=== PATIENT | female | born 2000 | race Hispanic/Latino ===

== ENCOUNTER 2018-01-05 22:16 | Emergency (ER) | payer SELFPAY ==
[~2018-01-05] VITALS: Ht 162.6 cm; Wt 56.2 kg
[2018-01-05] MEDS ORDERED: FLUDROCORTISON0.1 MG PO (23:25)
[2018-01-05] MEDS ORDERED: CORTEF10 MG PO (23:25)
[2018-01-05] MEDS ORDERED: LISINOPRIL10 MG PO (23:25)
[2018-01-05] MEDS ORDERED: SYNTHROID75 MCG PO (23:25)
[2018-01-05] MEDS ORDERED: FERROUS SULFAT325 M1 PO (23:25)
[2018-01-05] MEDS ORDERED: SODIUM CHLORIDE 0.9% 1000ML 1,000 ML IV SCH ×2 (23:30)
[2018-01-05 23:35] LABS: BASOPHILS % 0.1 % (0.0-1.0); EOSINOPHILS # (AUTO) 0.2 (0.0-0.4); EOSINOPHILS % 1.7 % (0.0-6.0); HEMATOCRIT 39.2 % (34.2-44.1); LYMPHOCYTES # (AUTO) 1.9 (1.0-3.2); LYMPHOCYTES % 21.4 % (18.0-39.1); MEAN CORPUSCULAR HEMOGLOBIN 31.1 pg (28-32); MEAN CORPUSCULAR HGB CONC 35.7 g/dL (31-35); MEAN CORPUSCULAR VOLUME 87.1 fL (81-99); MONOCYTES # (AUTO) 0.3 (0.2-0.8); MONOCYTES % 3.1 % (4.4-11.3); NEUTROPHILS # (AUTO) 6.6 (2.1-6.9); NEUTROPHILS % 73.5 % (38.7-80.0); PLATELET COUNT 263 x10e3/uL (140-360); RED CELL DISTRIBUTION WIDTH 11.9 % (11.7-14.4)
[2018-01-05 23:51] LABS: ALBUMIN 3.7 g/dL (3.5-5.0); ALBUMIN/GLOBULIN RATIO 1.1 (0.8-2.0); ANION GAP 15.8 mmol/L (8-16); CALCIUM 8.9 mg/dL (8.4-10.2); CREATININE, SERUM 1.38 mg/dL (0.57-1.11); MAGNESIUM 1.8 MG/DL (1.3-2.1); POTASSIUM 5.8 mmol/L (3.5-5.1)
[2018-01-06 00:05] LABS: PREGNANCY TEST, URINE NEGATIVE (NEGATIVE)
[2018-01-06 00:07] LABS: CLARITY,URINE CLEAR (CLEAR); COLOR,URINE YELLOW (YELLOW)
[2018-01-06 00:08] LABS: BILIRUBIN,URINE NEGATIVE (NEGATIVE); KETONES,URINE 1+ (NEGATIVE); LEUKOCYTE ESTERASE ,URINE NEGATIVE (NEGATIVE); NITRITE,URINE NEGATIVE (NEGATIVE); PROTEIN,URINE DIPSTICK NEGATIVE (NEGATIVE); URINE UROBILINOGEN 0.2 mg/dL (0.2 - 1)
[2018-01-06 00:19] LABS: EPITHELIAL CELLS,URINE RARE /LPF; TRICHOMONAS,URINE FEW
[2018-01-06] MEDS ORDERED: CEFTRIAXONE SOD 1 GM VIAL IV STA (00:26)
[2018-01-06] MEDS ORDERED: CEFTRIAXONE SOD 1 GM VIAL ONE (00:29)
[2018-01-06] MEDS ORDERED: INSULIN REGULAR, HUMAN 100 UNIT/1 ML 3ML VIAL IV ONE (00:30)
--- NOTE | 2018-01-06 01:03 | Diagnostic Imaging Report ---
EXAM: CHEST 2 VIEWS, PA and lateral INDICATION: Abdominal pain COMPARISON: None FINDINGS: LINES/TUBES: None LUNGS: No consolidations or edema. PLEURA: No effusions or pneumothorax. HEART AND MEDIASTINUM: Normal size and contour. BONES AND SOFT TISSUES: No acute findings. IMPRESSION: No acute thoracic abnormality. Signed by: Dr. Suellen Fitzgerald M.D. on 01/06/2018 12:59 AM
== END 2018-01-06 01:52 | disposition home or self-care (01) ==
LOC: ER 22:16
DX: R11.2 Nausea with vomiting, unspecified (principal); E86.0 Dehydration; E10.65 Type 1 diabetes mellitus with hyperglycemia; Z79.4 Long term (current) use of insulin; A59.9 Trichomoniasis, unspecified
CPT/HCPCS: 36415; 71046; 80053; 81001; 81025; 82150; 82948; 83690; 83735; 85025; 96374; 99284; J0696; J7030 ×2

== ENCOUNTER 2018-07-16 18:48 | Emergency (ER) | payer SELFPAY ==
[~2018-07-16] VITALS: Ht 162.6 cm; Wt 56.2 kg
[~2018-07-16 18:48] MED LIST: CORTEF10 MG PO; FERROUS SULFAT325 M1 PO; FLUDROCORTISON0.1 MG PO; LISINOPRIL10 MG PO; SYNTHROID75 MCG PO
--- OUTSIDE RECORDS SUMMARY | 2018-07-16 18:51 | XMS REPORT ---
Author Author [facility] Address Unknown Phone Unavailable Care Team Providers Care Proof Technician Name Role Phone Smith PERRY Unavailable Unavailable Problems This patient has no known problems. Allergies, Adverse Reactions, Alerts This patient has no known allergies or adverse reactions. Medications This patient has no known medications. Encounters Start Date/Time End Date/Time Encounter Type Admission Type Attending [facility] Care Facility Care Department Encounter ID 2018-06-24 00:00:00 2018-06-24 00:00:[address] [facility] [id number] 2018-06-24 00:00:00 2018-06-24 00:00:[address] [facility] [id number] 2018-05-21 00:00:00 2018-05-21 00:00:[address] [facility] [id number] 2018-05-21 00:00:00 2018-05-21 00:00:[address] [facility] [id number] 2018-05-21 00:00:00 2018-05-21 00:00:[address] [facility] [id number] 2018-05-18 00:00:00 2018-05-18 00:00:[address] [facility] [id number] 2018-05-13 15:28:53 2018-05-13 15:28:[address] [facility] [id number] 2018-05-13 14:19:29 2018-05-13 14:19:[address] [facility] [id number] Results Test Description Test Time Test Comments Text Results Atomic Results Result Comments CHEST 2 VIEWS 2018-01-06 00:58:00 [place] [address] Patient Name: ELIAN SORENSON MR #: [id number] : 2000 Age/Sex: 17/F Req #: [id number] Adm Physician: Ordered by: ABILIO PERRY MD Report #: [id number] Location: ER Room/Bed: Procedure: [id number] DX/CHEST 2 VIEWS Exam Date: 01/06/18 Exam Time: 2358 REPORT STATUS: Signed EXAM: CHEST 2 VIEWS, PA and lateral INDICATION: Abdominal pain COMPARISON: None FINDINGS: LINES/TUBES: None LUNGS: No consolidations or edema. PLEURA: No effusions or pneumothorax. HEART AND MEDIASTINUM: Normal size and contour. BONES AND SOFT TISSUES: No acute findings. IMPRESSION: No acute thoracic abnormality. Signed by: Dr. Aurelia Underwood M.D. on 01/06/2018 12:59 AM Dictated By: AURELIA UNDERWOOD MD Transcribed By: TRAVON on 01/06/1858 COPY TO: ABILIO PERRY MD
--- OUTSIDE RECORDS SUMMARY | 2018-07-16 18:51 | XMS REPORT | Clinical Summary ---
Author Author [facility] Organization [facility] Address Unknown Phone Unavailable Care Team Providers Care Lithographic Photographer Apprentice Name Role Phone Gregoria Rodrigez MD PCP Allergies No Known Allergies Medications End Date Status Medication Sig Dispensed Refills Start Date Active lisinopril (PRINIVIL) 5 Take 1 tablet 90 tablet 1 201 mg tabletIndications: by mouth 8 Type 1 diabetes mellitus daily. with microalbuminuria Active hydrocortisone (CORTEF) 5 Take 3 450 tablet 1 mg tabletIndications: tablets by 8 Primary adrenal mouth in the insufficiency morning and 2 tablets in early afternoon. Take triple the dose when ill Active levothyroxine (SYNTHROID) Take 1 tablet 90 tablet 1 88 mcg tabletIndications: by mouth 8 Aiden's thyroiditis every morning (before breakfast). Active fludrocortisone Take 1 tablet 90 tablet 1 (FLORINEF) 0.1 mg by mouth 8 tabletIndications: daily. Primary adrenal insufficiency Active insulin aspart U-100 Inject 15 39 mL 1 (NOVOLOG FLEXPEN U-100 Units under 8 INSULIN) 100 unit/mL the skin 3 penIndications: Type 1 times daily diabetes mellitus with with meals. microalbuminuria Active blood glucose meter Use as 1 Kit 0 (PRECISION XTRA directed.. 8 GLUCOMETER)Indications: Type 1 diabetes mellitus with microalbuminuria Active blood glucose (PRECISION Use 2 times 50 Each 3 XTRA TEST STRIPS) test weekly (once 8 stripsIndications: Type 1 per day on diabetes mellitus with Mon,Thurs) to microalbuminuria test blood sugar. Active lancets 28 Use 2 times 100 Each 1 gaugeIndications: Type 1 weekly as 8 diabetes mellitus with directed. microalbuminuria Active insulin detemir U-100 Inject 42 39 mL 1 (LEVEMIR FLEXTOUCH) 100 Units under 8 unit/mL (3 mL) the skin PenIndications: Type 1 every diabetes mellitus with evening. microalbuminuria Active pen needle, diabetic 31 Inject under 1 Box 11 gauge x 3/16" the skin 4 8 needlesIndications: Type times daily. 1 diabetes mellitus with microalbuminuria 05/13/2018 tropicamide (MYDRIACYL) Instill 1 15 mL 0 0.5 % ophthalmic Drop in each 8 solutionIndications: Type eye once as 1 diabetes mellitus with needed for up microalbuminuria to 1 dose (for poor retina scan image). Active Problems No known active problems Encounters Care Team Description Date Type Specialty Gregoria Rodrigez MD Other (Reschedule Retinal Scan appointment) 05/21/2018 Telephone Ophthalmology Gregoria Rodrigez MD Type 1 diabetes mellitus with microalbuminuria (Primary Dx); Need for vaccination; Primary adrenal insufficiency; Aiden's thyroiditis; Preventative health care 05/13/2018 Office Visit Family Practice after 07/15/2017 Immunizations Name Dates Previously Given Next Due Influenza, 05/13/2018 Vaccine<FLUCELVAX>(Multi- Dose) TDap (Tetanus Toxoid, 05/13/2018 Reduced Diphtheria Toxoid And Acellular Pertussis, Absorbed) Family History Medical History Relation Name Comments Diabetes Father Arthritis Mother Hypothyroid Mother Diabetes Paternal Grandfather Relation Name Status Comments Father Mother Paternal Grandfather Social History Date Tobacco Use Types Packs/Day Years Used Never Smoker Smokeless Tobacco: Never Used Alcohol Use Drinks/Week oz/Week Comments No Sex Assigned at Date Recorded Not on file Industry Job Start Date Occupation Not on file Not on file Not on file Travel End Travel History Travel Start No recent travel history available. Last Filed Vital Signs Time Taken Vital Sign Reading 05/13/2018 2:19 PM CDT Blood Pressure 85/47 05/13/2018 2:19 PM CDT Pulse 73 05/13/2018 2:19 PM CDT Temperature 36.5 C (97.7 F) 05/13/2018 2:19 PM CDT Respiratory Rate 20 - Oxygen Saturation - - Inhaled Oxygen - Concentration 05/13/2018 2:19 PM CDT Weight 57 kg (125 lb 9.6 oz) 05/13/2018 2:19 PM CDT Height 162.6 cm (5' 4") 05/13/2018 2:19 PM CDT Body Mass Index 21.56 Plan of Treatment Health Maintenance Due Date Last Done Comments DM Retinal Exam (Yearly) 2016 DM Foot Exam (Yearly) 05/13/2019 05/13/2018 DM HGBA1C (Yearly) 05/13/2019 05/13/2018 IMM Influenza Seasonal Completed 05/13/2018 Oct to September (>/=19 yrs) Procedures Comments Procedure Name Priority Date/Time Associated Diagnosis MICROALBUM, URINE Routine 05/13/2018 Type 1 diabetes mellitus 3:24 PM CDT with microalbuminuria ACTH, PLASMA Routine 05/13/2018 Primary adrenal 3:23 PM CDT insufficiency VIT D, 25-HYDROXY Routine 05/13/2018 Preventative health care 3:23 PM CDT HEPATITIS PANEL Routine 05/13/2018 Primary adrenal 3:23 PM CDT insufficiency HIV-1/HIV-2 ROUTINE Routine 05/13/2018 Primary adrenal SCREENING 3:23 PM CDT insufficiency FREE T4 Routine 05/13/2018 Aiden's thyroiditis 3:23 PM CDT TSH Routine 05/13/2018 Aiden's thyroiditis 3:23 PM CDT HEMOGLOBIN A1C Routine 05/13/2018 Type 1 diabetes mellitus 3:23 PM CDT with microalbuminuria CBC/DIFF Routine 05/13/2018 Type 1 diabetes mellitus 3:23 PM CDT with microalbuminuria COMPREHENSIVE METABOLIC Routine 05/13/2018 Type 1 diabetes mellitus PANEL(DBIL NOT INCLUDED) 3:23 PM CDT with microalbuminuria DIABETIC FOOT EXAM Routine 05/13/2018 Type 1 diabetes mellitus 3:03 PM CDT with microalbuminuria after 07/15/2017 Results * MICROALBUM, URINE (05/13/2018 3:24 PM CDT) Microalbum, <0.7 0.0 - 29.0 mg/dL BT MAIN-STATION Random 1 Creatinine, Ur 29.2 20 - 320 mg/dL BT MAIN[facility]STATION 1 Urine Unable to calculate, 0 - 29 mg/g UCR BT [facility]ATION Microalbumin parameters incomplete 4 Comment: To minimize intra-individual variation, analysis of three random urine samples collected over the course of a week is recommended. Performing Organization Address [facility] Phone Number [facility] 1 BT MAIN[facility] 4 * VIT D, 25-HYDROXY (05/13/2018 3:23 PM CDT) Vit D, 14.9 (L) 30 - 100 ng/mL BT DIAGNOSTIC 25-Hydroxy Comment: IMMUNOLOGY Vitamin D deficiency has been defined by the [place] of Medicine and Endocrine Society guideline as a level of serum 25-OH Vitamin D less than 20 ng/mL. The Endocrine Society further defines Vitamin D insufficiency as a level between 21 and 29 ng/mL and sufficiency as a level between 30 and 100 ng/mL. Performing Organization Address [facility] Phone Number [facility] BT DIAGNOSTIC IMMUNOLOGY * HIV-1/HIV-2 ROUTINE SCREENING (05/13/2018 3:23 PM CDT) HIV-1/HIV-2 Negative NEG BT MAIN-STATION 3 Performing Organization Address [facility] Phone Number [facility] 3 * ACTH, PLASMA (05/13/2018 3:23 PM CDT) ACTH, Plasma 894.2 LABORATORY Reference range: 7.2 to 63.3 [employer] OF Unit: pg/mL TERRELL (note) ACTH reference interval for samples collected between 7 and 10 AM. (H) Specimen Blood Performing Organization Address [facility] Phone Number [facility] OF [address] [facility] [place] [address] [address] * HEMOGLOBIN A1C (05/13/2018 3:23 PM CDT) Hemoglobin A1c 14.7 (H) 4.3 - 6.1 % BT DIAGNOSTIC IMMUNOLOGY Est Average 375.2 mg/dL BT DIAGNOSTIC Gluc IMMUNOLOGY Specimen Blood Performing Organization Address [facility] Phone Number [facility] * COMPREHENSIVE METABOLIC PANEL(DBIL NOT INCLUDED) (05/13/2018 3:23 PM CDT) Albumin 3.9 3.7 - 5.3 g/dL BT [facility]IN[facility]ATION 1 Calcium 10.1 8.6 - 10.3 mg/dL BT MAIN[facility]ATION 1 CO2 27 21 - 31 mmol/L BT MAIN[facility]STATION 1 Chloride 98 98 - 107 mmol/L BT MAIN[facility]ATION 1 Creatinine 0.90 0.6 - 1.2 mg/dL BT MAIN[facility]STATION 1 Glucose 335 (H) 70 - 110 mg/dL BT MAIN[facility]ATION 1 Alk Phos 74 34 - 104 U/L BT MAIN-STATION 1 Potassium 4.9 3.5 - 5.1 mmol/L BT MAIN[facility]STATION 1 Sodium 133 (L) 136 - 145 mmol/L BT MAIN-STATION 1 ALT 24 7 - 52 U/L BT MAIN[facility]STATION 1 AST 30 13 - 39 U/L BT MAIN-STATION 1 Urea Nitrogen 24 7 - 25 mg/dL BT MAIN[facility]ATION 1 T Bilirubin 0.7 0.2 - 1.2 mg/dL BT MAIN[facility]ATION 1 T Protein 6.3 6.0 - 8.3 g/dL BT [facility] 1 GFR, Estimated >60 mL/min/1.73 m2 BT MAIN-STATION 1 GFR, Estim, >60 mL/min/1.73 m2 BT MA[facility] Afr-Am 1 Anion Gap 8 BT MAIN-STATION 1 Specimen Blood Performing Organization Address [facility] Phone Number [facility] BT [facility]IN[facility]STATION 1 * TSH (05/13/2018 3:23 PM CDT) TSH 31.02 (H) 0.57 - 3.74 uIU/mL BT MAIN-STATION 1 Specimen Blood Performing Organization Address [facility] Phone Number [facility] BT [facility] 1 * FREE T4 (05/13/2018 3:23 PM CDT) Free T4 0.57 (L) 0.61 - 1.18 ng/dl BT [facility] Comment: 1 females: 1st Trimester-0.52-1.10 ng/dL 2nd Trimester=0.45-0.99 ng/dL 3rd Trimester=0.48-0.95 ng/dL Specimen Blood Performing Organization Address [facility] Phone Number [facility] BT [facility] 1 * HEPATITIS PANEL (05/13/2018 3:23 PM CDT) HCV IgG Negative NEG BT MAIN-STATION 3 HBsAg Negative NEG BT MAIN-STATION 3 HAV, IgM Negative NEG BT MAIN-STATION 3 HBcAb, IgM Negative NEG BT MAIN-STATION 3 Specimen Blood Performing Organization Address City/State/Zipcode Phone Number [facility] BT [facility] 3 * CBC/DIFF (05/13/2018 3:23 PM CDT) WBC 5.7 4.5 - 11.0 K/uL BT MAIN[facility]STATION 2 RBC 4.12 (L) 4.20 - 5.40 M/uL BT MAIN[facility]STATION 2 Hemoglobin 12.3 12.0 - 16.0 g/dL BT MA[facility] 2 Hematocrit 35.6 (L) 37.0 - 47.0 % BT MAIN[facility] 2 MCV 86 82 - 92 fL BT MAIN[facility]ATION 2 MCH 29.9 27.0 - 32.0 pg BT MAIN-STATION 2 MCHC 34.6 32.0 - 36.0 g/dL BT MA[facility] 2 RDW 39.0 36.4 - 46.3 fL BT [facility]ATION 2 Platelet 254 150 - 400 K/uL BT MAIN[facility]STATION 2 Mean Platelet 12.4 9.4 - 12.4 fL BT [facility] Volume 2 Percent NRBC 0.0 BT MAIN[facility]STATION 2 Absolute NRBC 0.00 BT MAIN[facility]STATION 2 Neutrophil 36.5 34.0 - 70.0 % BT MAIN[facility]ATION 2 Lymphocyte 49.3 20.0 - 50.0 % BT [facility] 2 Monocyte 5.7 5.0 - 12.0 % BT MAIN[facility] 2 Eosinophil 7.8 (H) 0.7 - 5.0 % BT [facility]ATION 2 Basophil 0.5 0.1 - 1.2 % BT [facility]IN[facility] 2 Pct Immat Gran 0.2 0.0 - 0.5 BT MAIN-STATION 2 Neutrophil, Abs 2.07 1.56 - 6.13 K/uL BT MAIN[facility]STATION 2 Lymphocyte, Abs 2.79 1.18 - 3.74 K/uL BT MAIN-STATION 2 Monocyte, Abs 0.32 0.24 - 0.36 K/uL BT MAIN-STATION 2 Eosinophil, Abs 0.44 (H) 0.04 - 0.36 K/uL BT MAIN-STATION 2 Basophil, Abs 0.03 0.01 - 0.08 K/uL BT MAIN-STATION 2 Absol Immat 0.01 0.00 - 0.03 K/uL BT MAIN[facility]ATION Gran 2 Specimen Blood Performing Organization Address City/State/Zipcode Phone Number [facility] 2 * DIABETIC FOOT EXAM (05/13/2018 3:03 PM CDT) Narrative Performed At Gregoria Rodrigez MD 05/13/20183:52 PM Diabetic Foot Exam was performed at 05/13/2018 3:52 PM.Right foot sensation is normal, right foot pulses are normal, right foot appearance is normal.Left foot sensation is normal,left foot pulses are normal, left foot appearance is normal. after 07/15/2017 Insurance Type Payer Benefit Subscriber ID Effective Phone Address Plan / Dates Group [facility] xxxxx 2018-8 [address] [employer] / [id number] [place], [place] [address] TITLE V PROGRAM TITLE V - xxxxxxxxx 2018- [phone] [address] [facility] [place] [address] [employer] PLAN H[employer] PLAN xxxxxxxxx 2018-[id number] [place] [address] [place] [address]
--- NOTE | 2018-07-16 22:00 | Diagnostic Imaging Report ---
CHEST 2 VIEWS, Technique: CHEST 2 VIEWS Comparison: None Clinical history: Cough DISCUSSION: Bilateral peribronchial cuffing/opacity. Otherwise normal appearance of the heart, mediastinum, and pleural spaces. IMPRESSION: Findings which can be seen with small airways disease/atypical/viral infection. Signed by: Dr Lilli Cheatham MD on 07/16/2018 9:57 PM
== END 2018-07-16 23:00 | disposition home or self-care (01) ==
LOC: ER 18:48
DX: R50.9 Fever, unspecified (principal); R05 Cough; J02.0 Streptococcal pharyngitis
CPT/HCPCS: 71046; 83518; 87070

== ENCOUNTER 2018-11-12 20:34 | Inpatient (IN) | payer SELFPAY ==
[~2018-11-12] VITALS: Ht 162.6 cm; Wt 60.8 kg
--- OUTSIDE RECORDS SUMMARY | 2018-11-12 20:37 | XMS REPORT | Clinical Summary ---
Author Author [facility] Organization [facility] Address Unknown Phone Unavailable Care Team Providers Care Project Management Instructor Name Role Phone Gregoria Rodrigez MD PCP Allergies No Known Allergies Medications End Date Status Medication Sig Dispensed Refills Start Date Active hydrocortisone (CORTEF) 5 Take 3 450 tablet 1 mg tabletIndications: tablets by 8 Primary adrenal mouth in the insufficiency morning and 2 tablets in early afternoon. Take triple the dose when ill Active fludrocortisone Take 1 tablet 90 tablet 1 (FLORINEF) 0.1 mg by mouth 8 tabletIndications: daily. Primary adrenal insufficiency Active blood glucose meter Use as 1 Kit 0 (PRECISION XTRA directed.. 8 GLUCOMETER)Indications: Type 1 diabetes mellitus with microalbuminuria Active pen needle, diabetic 31 Inject under 1 Box 11 gauge x 3/16" the skin 4 8 needlesIndications: Type times daily. 1 diabetes mellitus with microalbuminuria Active blood glucose (PRECISION Use 2 times 50 Each 3 XTRA TEST STRIPS) test weekly (once 9 stripsIndications: Type 1 per day on diabetes mellitus with Mon,) to microalbuminuria test blood sugar. Active lancets 28 Use 2 times 100 Each 1 gaugeIndications: Type 1 weekly as 9 diabetes mellitus with directed. microalbuminuria Active lisinopril (PRINIVIL) 5 Take 1 tablet 90 tablet 1 mg tabletIndications: by mouth 9 Type 1 diabetes mellitus daily. with microalbuminuria Active levothyroxine (SYNTHROID) Take 1 tablet 90 tablet 1 88 mcg tabletIndications: by mouth 9 Aiden's thyroiditis every morning (before breakfast). Active insulin detemir U-100 Inject 42 39 mL 1 (LEVEMIR FLEXTOUCH) 100 Units under 9 unit/mL (3 mL) the skin PenIndications: Type 1 every diabetes mellitus with evening. microalbuminuria Active insulin aspart U-100 Inject 15 39 mL 0 (NOVOLOG FLEXPEN U-100 Units under 9 INSULIN) 100 unit/mL the skin 3 penIndications: Type 1 times daily diabetes mellitus with with meals. microalbuminuria 08/18/2018 Discontinued lisinopril (PRINIVIL) 5 Take 1 tablet 90 tablet 1 mg tabletIndications: by mouth 8 Type 1 diabetes mellitus daily. with microalbuminuria 08/18/2018 Discontinued levothyroxine (SYNTHROID) Take 1 tablet 90 tablet 1 88 mcg tabletIndications: by mouth 8 Aiden's thyroiditis every morning (before breakfast). 09/07/2018 Discontinued insulin aspart U-100 Inject 15 39 mL 1 (NOVOLOG FLEXPEN U-100 Units under 8 INSULIN) 100 unit/mL the skin 3 penIndications: Type 1 times daily diabetes mellitus with with meals. microalbuminuria 05/13/2018 tropicamide (MYDRIACYL) Instill 1 15 mL 0 0.5 % ophthalmic Drop in each 8 solutionIndications: Type eye once as 1 diabetes mellitus with needed for up microalbuminuria to 1 dose (for poor retina scan image). 08/17/2018 Discontinued blood glucose (PRECISION Use 2 times 50 Each 3 XTRA TEST STRIPS) test weekly (once 8 stripsIndications: Type 1 per day on diabetes mellitus with Thu,) to microalbuminuria test blood sugar. 08/17/2018 Discontinued lancets 28 Use 2 times 100 Each 1 gaugeIndications: Type 1 weekly as 8 diabetes mellitus with directed. microalbuminuria 08/18/2018 Discontinued insulin detemir U-100 Inject 42 39 mL 1 (LEVEMIR FLEXTOUCH) 100 Units under 8 unit/mL (3 mL) the skin PenIndications: Type 1 every diabetes mellitus with evening. microalbuminuria Active Problems No known active problems Encounters Care Team Description Date Type Specialty Shauna Gao, OD Type 1 diabetes mellitus without retinopathy (Primary Dx); Glaucoma suspect of left eye; Blurred vision, left eye; Refractive error 11/02/2018 Office Visit Ophthalmology 11/02/2018 Gregoria Hawkins MD Type 1 diabetes mellitus with microalbuminuria 09/07/2018 Refill Ophthalmology Gregoria Rodrigez MD Type 1 diabetes mellitus with microalbuminuria 08/18/2018 Lab Appointment Lab Gregoria Rodrigez MD Type 1 diabetes mellitus with microalbuminuria 08/18/2018 Ancillary Ophthalmology Procedure 08/18/2018 Gregoria Hawkins MD Type 1 diabetes mellitus with microalbuminuria; Aiden's thyroiditis 08/18/2018 Refill Family Practice Gregoria Rodrigez MD Type 1 diabetes mellitus with microalbuminuria 08/17/2018 Refill Ophthalmology Gregoria Rodrigez MD Other (Reschedule Retinal Scan appointment) 05/21/2018 Telephone Ophthalmology Gregoria Rodrigez MD Type 1 diabetes mellitus with microalbuminuria (Primary Dx); Need for vaccination; Primary adrenal insufficiency; Aiden's thyroiditis; Preventative health care 05/13/2018 Office Visit Family Practice after 11/11/2017 Immunizations Name Dates Previously Given Next Due Influenza, 05/13/2018 Vaccine<FLUCELVAX>(Multi- Dose) Tdap (Tetanus Toxoid, 05/13/2018 Reduced Diphtheria Toxoid And [...] Body Mass Index 21.56 Plan of Treatment Care Team Description Date Type Specialty Gregoria Rodrigez MD [address] [facility] [id number] [place] [address] General check up 11/30/2018 Office Visit Family Practice 12/30/2018 Office Visit Ophthalmology Shauna Gao, OD [address] [place] [address] OCT 01/31/2019 Office Visit Ophthalmology Health Maintenance Due Date Last Done Comments IMM Influenza Seasonal 04/26/2019 05/13/2018Apr to September (>/=19 yrs) DM Foot Exam (Yearly) 05/13/2019 05/13/2018 DM HGBA1C (Yearly) 05/13/2019 05/13/2018 DM Retinal Exam (Yearly) 11/03/2019 11/02/2018, 08/18/2018 Procedures Comments Procedure Name Priority Date/Time Associated Diagnosis OPHTHALMOLOGY RETINAL Routine 08/18/2018 Type 1 diabetes mellitus 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 microalbuminuria LIPID PROFILE Routine 08/18/2018 Type 1 diabetes mellitus 9:46 AM KNITTING MACHINE MECHANIC with microalbuminuria MICROALBUM, URINE Routine 05/13/2018 Type 1 diabetes [...] mellitus 3:03 PM CDT with microalbuminuria after 11/11/2017 Results * OPHTHALMOLOGY RETINAL SCAN (08/18/2018 11:04 AM KNITTING MACHINE MECHANIC) RETINAL NORMAL IRIS SCAN-FINAL RESULT Right Diabetic None IRIS Retinopathy Right Macular None IRIS Edema Right Other None IRIS Suspected Conditions Right Image Gradeable Image IRIS Quality Left Diabetic None IRIS Retinopathy Left Macular None IRIS Edema Left Other Suspected Glaucoma IRIS Suspected Conditions Left Image Gradeable Image IRIS Quality Narrative Performed At Retinal Study Result for ELIAN SORENSON ESMERALDA, a 18 y/o, F (: 2000, ) presented to [facility] on 08-18-2018 for a retinal imaging study of the left and right eyes. Based on the findings of the study, the following is recommended for ELIAN SORENSON Other Suspected Condition Found: Refer to [facility], next available appointment.For Follow-up at [facility]: The patient can be scheduled into any [facility] that has an open booking by calling the appointment center. Interpreting Provider's Comments:No comments provided Right Eye Findings: Normal Result.Negative for Diabetic Retinopathy. Left Eye Findings: Negative for Diabetic Retinopathy. Other: Suspected Glaucoma This result was electronically signed by Nicola Daugherty MD, , Taxonomy: [id number] on 08-18-2018 04:04:29 [facility] time. NOTE:Any pathology noted on this diabetic retinal evaluation should be confirmed by an appropriate ophthalmic examination. Performing Organization Address City/State/Zipcode Phone Number IRIS * LIPID PROFILE (08/18/2018 9:46 AM KNITTING MACHINE MECHANIC) Cholesterol 196 mg/dL BT MAIN-STATION Comment: 1 REFERENCE RANGE: Desirable: <200 mg/dL Borderline: 200-240 mg/dL High Risk: >240 mg/dL Triglyceride 103 <150 mg/dL BT MAIN-STATION Comment: 1 REFERENCE RANGE: Normal: <150 mg/dL Borderline High: 150-199 mg/dL High: 200-499 mg/dL Very High: >ni=340 mg/dL HDL 50 mg/dL BT MAIN-STATION Comment: 1 Increased CHD risk: <40 mg/dL Decreased CHD risk: >60 mg/dL LDL 125 mg/dL BT MAIN-STATION Comment: 1 REFERENCE RANGE: Optimal: <100 mg/dL Near Optimal: 100-129 mg/dL Borderline High: 130-159 mg/dL High: 160-189 mg/dL Very High: >ob=636 mg/dL Specimen Blood Performing Organization Address City/[facility] Vegascode Phone Number [email or web address] BT MAIN-STATION 1 * MICROALBUM, URINE (05/13/2018 3:24 PM CDT) [...] a week is recommended. Performing Organization Address City/[email or web address] Phone Number [employer] BT MAIN-STATION 1 BT MAIN-STATION 4 * VIT D, 25-HYDROXY (05/13/2018 3:23 PM CDT) Vit D, 14.9 (L) 30 - 100 ng/mL BT DIAGNOSTIC 25-Hydroxy Comment: IMMUNOLOGY Vitamin D deficiency has been defined by the [place] and Endocrine Society guideline as a level of serum 25-OH Vitamin D less than 20 ng/mL. The Endocrine Society further defines Vitamin D insufficiency as a level between 21 and 29 ng/mL and sufficiency as a level between 30 and 100 ng/mL. Performing Organization Address City/State/[employer]code Phone Number [email or web address] BT DIAGNOSTIC IMMUNOLOGY * HIV-1/HIV-2 ROUTINE SCREENING (05/13/2018 3:23 PM CDT) HIV-1/HIV-2 Negative NEG BT MAIN-STATION 3 Performing Organization Address City/State/[employer] Phone Number [employer] BT MAIN-STATION 3 * ACTH, PLASMA (05/13/2018 3:23 PM CDT) ACTH, Plasma 894.2 LABORATORY Reference range: 7.2 to 63.3 CORPORATION OF Unit: pg/mL TERRELL (note) ACTH reference interval for samples collected between 7 and 10 AM. (H) Specimen Blood Performing Organization Address [facility] Vegascode Phone Number [employer] TherapeuticsMILLICENT [facility]AT[facility] CORPORATION OF [address], [place] [address] TERRELL 145 * HEMOGLOBIN A1C (05/13/2018 3:23 PM CDT) Hemoglobin A1c 14.7 (H) 4.3 - 6.1 % BT DIAGNOSTIC IMMUNOLOGY Est Average 375.2 mg/dL BT DIAGNOSTIC Gluc IMMUNOLOGY Specimen Blood Performing Organization Address [facility] Phone Number DOMINIQUE DIAGNOSTIC IMMUNOLOGY * COMPREHENSIVE METABOLIC PANEL(DBIL NOT [...] MAIN-STATION 1 Specimen Blood Performing Organization Address [facility] Vegascova Phone Number MISYS BT MAIN-STATION 1 * TSH (05/13/2018 3:23 PM CDT) TSH 31.02 (H) 0.57 - 3.74 uIU/mL BT MAIN-STATION 1 Specimen Blood Performing Organization Address [facility] Phone Number [facility] BT MAIN-STATION 1 * FREE T4 (05/13/2018 3:23 PM CDT) Free T4 0.57 (L) 0.61 - 1.18 ng/dl BT MAIN-STATION Comment: 1 females: 1st Trimester-0.52-1.10 ng/dL 2nd Trimester=0.45-0.99 ng/dL 3rd Trimester=0.48-0.95 ng/dL Specimen Blood Performing Organization Address [facility] Phone Number [facility] BT MAIN-STATION 1 * HEPATITIS PANEL (05/13/2018 3:23 PM CDT) HCV IgG Negative NEG BT MAIN-STATION 3 HBsAg Negative NEG BT MAIN-STATION 3 HAV, IgM Negative NEG BT MAIN-STATION 3 HBcAb, IgM Negative NEG BT MAIN-STATION 3 Specimen Blood Performing Organization Address [facility] Phone Number [facility] BT MAIN-STATION 3 * CBC/DIFF (05/13/2018 3:23 [...] normal, left foot appearance is normal. after 11/11/2017 Insurance Type Payer Benefit Subscriber ID Effective Phone Address Plan / Dates Group [facility] xxxxx 2018- [phone] [address]ILY [id number] [place], [place] [address] TITLE V PROGRAM TITLE V - xxxxxxxxx 2018- [phone] [address] [place] [address] HCHD PLAN HCHD PLAN xxxxx 2018-9 [address] [place] [address]
[2018-11-12] MEDS ORDERED: SODIUM CHLORIDE 0.9% 1000ML 2,000 ML IV STA (20:48)
[2018-11-12 21:13] LABS: BASOPHILS % 0.2 % (0.0-1.0); EOSINOPHILS # (AUTO) 0.1 (0.0-0.4); EOSINOPHILS % 0.9 % (0.0-6.0); HEMOGLOBIN 11.6 g/dL (12.0-16.0); LYMPHOCYTES % 33.2 % (18.0-39.1); MEAN CORPUSCULAR HEMOGLOBIN 30.5 pg (28-32); MEAN CORPUSCULAR HGB CONC 34.1 g/dL (31-35); MEAN CORPUSCULAR VOLUME 89.5 fL (81-99); MONOCYTES # (AUTO) 0.3 (0.2-0.8); MONOCYTES % 4.9 % (4.4-11.3); NEUTROPHILS # (AUTO) 3.6 (2.1-6.9); NEUTROPHILS % 60.6 % (38.7-80.0); PLATELET COUNT 211 x10e3/uL (140-360); RED CELL DISTRIBUTION WIDTH 13.3 % (11.7-14.4)
[2018-11-12] MEDS ORDERED: SODIUM CHLORIDE 0.9% 1000ML 1,000 ML ONE (21:20)
[2018-11-12 21:33] LABS: ALANINE AMINOTRANSFERASE 75 IU/L (0-55); ALBUMIN 3.6 g/dL (3.5-5.0); ALKALINE PHOSPHATASE 149 IU/L (40-150); ANION GAP 19.7 mmol/L (8-16); BLOOD UREA NITROGEN 46 mg/dL (7-26); BUN/CREATININE RATIO 16 (6-25); CALCIUM 9.1 mg/dL (8.4-10.2); CARBON DIOXIDE 22 mmol/L (22-29); CHLORIDE 89 mmol/L (98-107); CREATININE, SERUM 2.92 mg/dL (0.57-1.11); EST GLOMERULAR FILTRATION RATE 21 ML/MIN (60-); GLUCOSE 263 mg/dL (74-118); POTASSIUM 4.7 mmol/L (3.5-5.1); SODIUM 126 mmol/L (136-145)
[2018-11-12] MEDS ORDERED: ONDANSETRON HCL INJ 2MG/ML 2ML 2 MG/ML VIAL IV STA (21:37)
[2018-11-12] MEDS ORDERED: ONDANSETRON HCL INJ 2MG/ML 2ML 2 MG/ML VIAL ONE (21:41)
--- NOTE | 2018-11-12 21:49 | Diagnostic Imaging Report ---
EXAMINATION: CHEST SINGLE (PORTABLE) COMPARISON: Chest x-ray 07/16/2018 INDICATION: Nausea and vomiting ^ERMD ORDER ^[id number] ^0 ^Y DISCUSSION: Frontal view of the chest obtained at 2135 hours. HEART AND MEDIASTINUM: The cardiomediastinal silhouette is unremarkable. LINES: None. LUNGS: The lungs are well inflated and clear. No pneumonia or pulmonary edema. PLEURA: No pleural effusion or pneumothorax. BONES AND SOFT TISSUES: Mild dextroscoliosis of the midthoracic spine is stable. No focal osseous lesions. The soft tissues are normal. IMPRESSION: No acute cardiopulmonary disease. Signed by: Dr. Renzo Marc MD on 11/12/2018 9:46 PM
[2018-11-12] MEDS ORDERED: DEXTROSE 50% SYRINGE 50 ML IV PRN (22:00)
[2018-11-12] MEDS ORDERED: ONDANSETRON HCL INJ 2MG/ML 2ML 2 MG/ML VIAL IV PRN (22:00)
--- OUTSIDE RECORDS SUMMARY | 2018-11-12 22:03 | XMS REPORT | Clinical Summary ---
Author Author [facility] Organization [facility] Address Unknown Phone Unavailable Care Team Providers Care Ged Tutor Name Role Phone Gregoria Rodrigez MD PCP [...] Date Type Specialty Gregoria Rodrigez MD [address] [facility] [address] [place] [address] General check up 11/30/2018 Office Visit Family Practice 12/30/2018 Office Visit Ophthalmology Shauna Gao, OD [address] [place] [address] OCT 01/31/2019 Office Visit Ophthalmology Health Maintenance Due Date Last Done Comments IMM Influenza Seasonal 04/26/2019 05/13/2018Apr to September (>/=19 yrs) DM Foot Exam (Yearly) 05/13/2019 05/13/2018 DM HGBA1C (Yearly) 05/13/2019 05/13/2018 DM Retinal Exam (Yearly) 11/03/2019 11/02/2018, 08/18/2018 Procedures Comments Procedure Name Priority Date/Time Associated Diagnosis OPHTHALMOLOGY RETINAL Routine 08/18/2018 Type 1 diabetes mellitus SCAN 11:04 AM THEATRE DIRECTOR with microalbuminuria LIPID PROFILE Routine 08/18/2018 Type 1 diabetes mellitus 9:46 AM THEATRE DIRECTOR with microalbuminuria MICROALBUM, URINE Routine 05/13/2018 Type [...] * OPHTHALMOLOGY RETINAL SCAN (08/18/2018 11:04 AM THEATRE DIRECTOR) RETINAL NORMAL IRIS SCAN-FINAL RESULT Right Diabetic [...] y/o, F (: 2000, ) presented to [facility] on 08-18-2018 for a retinal imaging study of the left and right eyes. Based on the findings of the study, the following is recommended for ELIAN SORENSON Other Suspected Condition Found: Refer to [facility], next available appointment.For Follow-up at [facility]: The patient can be scheduled into any [facility] that has an open booking by calling the appointment center. Interpreting Provider's Comments:No comments provided Right Eye Findings: Normal Result.Negative for Diabetic Retinopathy. Left Eye Findings: Negative for Diabetic Retinopathy. Other: Suspected Glaucoma This result was electronically signed by Nicola Daugherty MD, , Taxonomy: [id number] on 08-18-2018 04:04:29 [facility] time. NOTE:Any pathology noted on this diabetic retinal evaluation should be confirmed by an appropriate ophthalmic examination. Performing Organization Address City/State/Zipcode Phone Number IRIS * LIPID PROFILE (08/18/2018 9:46 AM THEATRE DIRECTOR) Cholesterol 196 mg/dL BT MAIN-STATION Comment: 1 REFERENCE RANGE: Desirable: <200 mg/dL Borderline: 200-240 mg/dL High Risk: >240 mg/dL Triglyceride 103 <150 mg/dL BT MAIN-STATION Comment: 1 REFERENCE RANGE: Normal: <150 mg/dL Borderline High: 150-199 mg/dL High: 200-499 mg/dL Very High: >dr=473 mg/dL HDL 50 mg/dL BT MAIN-STATION Comment: 1 Increased CHD risk: <40 mg/dL Decreased CHD risk: >60 mg/dL LDL 125 mg/dL BT MAIN-STATION Comment: 1 REFERENCE RANGE: Optimal: <100 mg/dL Near Optimal: 100-129 mg/dL Borderline High: 130-159 mg/dL High: 160-189 mg/dL Very High: >gx=673 mg/dL Specimen Blood Performing Organization Address City/[facility] Phone Number [employer] BT MAIN-STATION 1 * MICROALBUM, URINE (05/13/2018 [...] a week is recommended. Performing Organization Address City/[facility]/[employer] Phone Number [employer] BT MAIN-STATION 1 BT MAIN-STATION 4 * VIT D, 25-HYDROXY (05/13/2018 3:23 PM CDT) Vit D, 14.9 (L) 30 - 100 ng/mL BT DIAGNOSTIC 25-Hydroxy Comment: IMMUNOLOGY Vitamin D deficiency has been defined by the [place] [employer] and Endocrine Society guideline as a level of serum 25-OH Vitamin D less than 20 ng/mL. The Endocrine Society further defines Vitamin D insufficiency as a level between 21 and 29 ng/mL and sufficiency as a level between 30 and 100 ng/mL. Performing Organization Address City/State/Gabstrcode Phone Number [employer] BT DIAGNOSTIC IMMUNOLOGY * HIV-1/HIV-2 ROUTINE SCREENING (05/13/2018 3:23 PM CDT) HIV-1/HIV-2 Negative NEG BT MAIN-STATION 3 Performing Organization Address City/State/Gabstrcode Phone Number [employer] BT MAIN-STATION 3 * ACTH, PLASMA (05/13/2018 3:23 PM CDT) ACTH, Plasma 894.2 LABORATORY Reference range: 7.2 to 63.3 CORPORATION OF Unit: pg/mL TERRELL (note) ACTH reference interval for samples collected between 7 and 10 AM. (H) Specimen Blood Performing Organization Address [facility] Phone Number [employer]erosMILLICENT [employer]ORAT[employer] CORPORATION OF [address] [place] [address] TERRELL 145 * HEMOGLOBIN A1C (05/13/2018 3:23 PM CDT) Hemoglobin A1c 14.7 (H) 4.3 - 6.1 % BT DIAGNOSTIC IMMUNOLOGY Est Average 375.2 mg/dL BT DIAGNOSTIC Gluc IMMUNOLOGY Specimen Blood Performing Organization Address [facility] Phone Number DOMINIQUE DIAGNOSTIC IMMUNOLOGY [...] MAIN-STATION 1 Specimen Blood Performing Organization Address [facility] Hospital[facility] Phone Number MISYS BT MAIN-STATION 1 * TSH (05/13/2018 3:23 PM CDT) TSH 31.02 (H) 0.57 - 3.74 uIU/mL BT MAIN-STATION 1 Specimen Blood Performing Organization Address [facility] Phone Number [facility] BT MAIN-STATION 1 * FREE T4 (05/13/2018 3:23 PM CDT) Free T4 0.57 (L) 0.61 - 1.18 ng/dl BT MAIN-STATION Comment: 1 females: 1st Trimester-0.52-1.10 ng/dL 2nd Trimester=0.45-0.99 ng/dL 3rd Trimester=0.48-0.95 ng/dL Specimen Blood Performing Organization Address [facility] Phone Number [facility] BT MAIN-STATION 1 * HEPATITIS PANEL (05/13/2018 3:23 PM CDT) HCV IgG Negative NEG BT MAIN-STATION 3 HBsAg Negative NEG BT MAIN-STATION 3 HAV, IgM Negative NEG BT MAIN-STATION 3 HBcAb, IgM Negative NEG BT MAIN-STATION 3 Specimen Blood Performing Organization Address [facility] Phone Number [facility] BT MAIN-STATION 3 * CBC/DIFF (05/13/2018 3:23 [...] Effective Phone Address Plan / Dates Group [facility] xxxxx 2018- [phone] [id number] [place], [place] [address] TITLE V PROGRAM TITLE V - xxxxxxxxx 2018- [phone] [address] [place] [address] HCHD PLAN HCHD PLAN xxxxx 2018-9 [address] [place] [address]
[2018-11-12] MEDS ORDERED: HYDROCORTISONE10 MG PO ×2 (22:04→22:05)
[2018-11-12] MEDS ORDERED: LANTUS 3ML100 UNITS/ SC (22:05)
[2018-11-12] MEDS ORDERED: NOVOLOG100 UNIT/1 SC (22:06)
[2018-11-12 22:08] LABS: BILIRUBIN,URINE 2+ (NEGATIVE); CLARITY,URINE CLEAR (CLEAR); COLOR,URINE YELLOW (YELLOW); KETONES,URINE NEGATIVE (NEGATIVE); LEUKOCYTE ESTERASE ,URINE NEGATIVE (NEGATIVE); NITRITE,URINE NEGATIVE (NEGATIVE); PROTEIN,URINE DIPSTICK NEGATIVE (NEGATIVE); URINE UROBILINOGEN 0.2 mg/dL (0.2 - 1)
[2018-11-12 22:17] LABS: EPITHELIAL CELLS,URINE MANY /LPF
[2018-11-12 22:19] LABS: WBC,URINE (MAN) 0-5 /HPF (0-5)
[2018-11-12 22:20] LABS: RBC,URINE 0-5 /HPF (0-5)
[2018-11-12 22:21] LABS: HYALINE CASTS 0-1 (0-1); TRANSITIONAL EPI CELLS,URINE MODERATE; YEAST,URINE FEW
[2018-11-12] MEDS: SODIUM CHLORIDE 0.9% 1000ML 1,000 ML IV SCH (22:36)
[2018-11-13] VITALS (10 sets, daily range): BP systolic 73–105; BP diastolic 43–56
--- NOTE | 2018-11-13 | NUR ---
Pt received from ER. Pt A&O and in no apparent distress. Pt mother at bedside. All safety measures ensured, bed alarm on, and pt call jamil near. Pt encouraged to use call jamil for assistance.
--- NOTE | 2018-11-13 04:35 | NUR ---
PCT reported low BP of 73/36. Assessed pt and pt is awake, alert, and orientated. Not lethargic and no has no complaints. Performed manual BP with result of 80/50. Had PCT perform orthostatic BPs. Laying down 80/50, sitting 97/46, and standing 80/47. Pt on IV fluids and will continue to monitor pt.
[2018-11-13] MEDS: SODIUM CHLORIDE 0.9% 1000ML 1,000 ML IV SCH (06:13)
[2018-11-13 06:44] LABS: ANION GAP 16.1 mmol/L (8-16); CALCIUM 7.1 mg/dL (8.4-10.2); CREATININE, SERUM 1.7 mg/dL (0.57-1.11); POTASSIUM 4.1 mmol/L (3.5-5.1)
--- NOTE | 2018-11-13 06:58 | NUR ---
Report given and walking rounds complete. Pt sleeping in bed and in no apparent distress. All safety measures ensured.
[2018-11-13] MEDS ORDERED: INSULIN REGULAR, HUMAN 100 UNIT/1 ML 3ML VIAL SQ SCH (07:30)
[2018-11-13] MEDS ORDERED: DEXTROSE 50% SYRINGE 50 ML IV PRN (09:15)
[2018-11-13] MEDS ORDERED: HYDROCORTISONE SOD SUCCINATE 100 MG VIAL IV SCH ×2 (09:15→17:00)
[2018-11-13] MEDS: FLUDROCORTISONE ACETATE 0.1 MG TAB PO SCH ×2 (09:30→16:55)
[2018-11-13] MEDS ORDERED: LEVOTHYROXINE SODIUM 88 MCG TAB PO SCH (09:30)
[2018-11-13] MEDS ORDERED: INSULIN GLARGINE 100 UNITS/ML VIAL SQ NR (09:30)
[2018-11-13] MEDS: CEFTRIAXONE SOD 1 GM/NS 50 ML 50 ML IV SCH ×2 (09:30→21:08)
--- NOTE | 2018-11-13 10:31 | NUR ---
CASE MANAGEMENT INITIAL ASSESSMENT Almond Grinder to bedside to discuss plan of care with patient/family. CM/SW role and care transitions discussed. Anticipated discharge plan discussed along with duration of care. CM/SW discussed patients right to make decisions in care. CM/SW work hours given. Patient lives: W/ MOTHER Admit/Transfer: ED Hospital/ER visits since last admit: GREATER THAN 6 MONTHS AGO POA/Emergency contact: MOTHERCHELO [phone] Current/Previous Home Health: NONE PCP/Follow-up Care: "[facility]RAVO W/ [facility]" Current/Previous DME: BLOOD GLUCOSE MONITOR Medications (referring to index hospitalization or the first time you were in the hospital) a. Were changes made in your medications when you were in the hospital on [date of index hospitalization]? Yes XNo Not sure Explain: Note: If no or not sure, please skip to question d b. Did you understand the changes? Yes No Explain: c. Were you able to obtain your new medications right away? Yes No n/a SNF only Explain: d. Were you able to take your medications like the doctor wanted you to? X Yes No Explain: e. Did the hospital give you an accurate, easy to understand list of medications when you left? XYes No n/a SNF only Explain: Scale of 1-10 how comfortable does patient feel with disease management in outpatient setting: Other Services: Employment Status: UNEMPLOYED Areas of Concerns: DENIES Referral Needs: NONE Education Needs: SELF PAY PACKET GIVEN IMM/JACOBO given and signed (if applicable): N/A Goal for discharge: DC HOME WITH MOTHER W/O NEEDS, AND FOLLOW UP WITH [facility] CM/SW left business card at the bedside with contact information. Name and number was also written on the patients whiteboard. Patient verbalized understanding of discussion. CM will follow-up with ongoing discharge and transition of care needs.
[2018-11-13] MEDS ORDERED: SODIUM BICARBONATE 8.4% SYRING 150 ML in STERILE WATER IV SOLN 1,000 ML IV STA (10:52)
--- NOTE | 2018-11-13 10:57 | NUR ---
patient leaving unit via wheelchair for CT scan, alert and oriented. Addendum: 11/13/18 at 1106 by Haley Bourgeois RN CT transporter concerned about BP being low. Assessed patient and she is asymptomatic, alert and oriented x4 and in no distress.
[2018-11-13 11:21] LABS: BASOPHILS % 0.2 % (0.0-1.0); EOSINOPHILS # (AUTO) 0.1 (0.0-0.4); EOSINOPHILS % 2.2 % (0.0-6.0); HEMATOCRIT 25.2 % (34.2-44.1); HEMOGLOBIN 8.2 g/dL (12.0-16.0); LYMPHOCYTES # (AUTO) 2.8 (1.0-3.2); LYMPHOCYTES % 55.9 % (18.0-39.1); MEAN CORPUSCULAR HEMOGLOBIN 30.4 pg (28-32); MEAN CORPUSCULAR HGB CONC 32.5 g/dL (31-35); MONOCYTES # (AUTO) 0.2 (0.2-0.8); MONOCYTES % 4.8 % (4.4-11.3); NEUTROPHILS # (AUTO) 1.8 (2.1-6.9); NEUTROPHILS % 36.9 % (38.7-80.0); PLATELET COUNT 150 x10e3/uL (140-360); RED CELL DISTRIBUTION WIDTH 13.8 % (11.7-14.4)
[2018-11-13 11:23] LABS: MEAN CORPUSCULAR VOLUME 93.3 fL (81-99)
--- NOTE | 2018-11-13 11:25 | NUR ---
patient returned to unit via wheelchair, alert and oriented and in no distress. call jamil within reach and bed in lowest position.
[2018-11-13 11:30] LABS: ANION GAP 17.1 mmol/L (8-16); CALCIUM 7.1 mg/dL (8.4-10.2); CREATININE, SERUM 1.71 mg/dL (0.57-1.11); POTASSIUM 4.1 mmol/L (3.5-5.1)
--- NOTE | 2018-11-13 12:01 | Diagnostic Imaging Report ---
EXAM: CT Abdomen and Pelvis WITHOUT contrast INDICATION: ^ABD PAIN COMPARISON: Chest radiograph 11/12/2018 TECHNIQUE: Abdomen and pelvis were scanned utilizing a multidetector helical scanner from the lung base to the pubic symphysis without administration of IV contrast. Absence of intravenous contrast decreases sensitivity for detection of focal lesions and vascular pathology. Coronal and sagittal reformations were obtained. Routine protocol was performed. IV CONTRAST: None. ORAL CONTRAST: Water RADIATION DOSE: Total DLP: 209.5 mGy*cm Estimated effective dose: (DLP x 0.015 x size factor) mSv COMPLICATIONS: None FINDINGS: LINES and TUBES: None. LOWER THORAX: Minimal dependent atelectasis in both lung bases. HEPATOBILIARY: No focal hepatic lesions. No biliary ductal dilation. GALLBLADDER: No radio-opaque stones or sludge. No wall thickening. SPLEEN: No splenomegaly. PANCREAS: No focal masses or ductal dilatation. ADRENALS: No adrenal nodules KIDNEYS/URETERS: No hydronephrosis. No cystic or solid mass lesions. No stones. GI TRACT: No abnormal distention, wall thickening, or evidence of bowel obstruction. Appendix is not visualized. PELVIC ORGANS/BLADDER: The urinary bladder is moderately distended without calcified stones. The uterus is not well evaluated but appears normal in size. No adnexal masses on limited evaluation. LYMPH NODES: No lymphadenopathy. VESSELS: Unremarkable. PERITONEUM / RETROPERITONEUM: No free air. Small amount of low attenuation free fluid in the right side of the deep pelvis on series 3, image 131. BONES: Unremarkable. SOFT TISSUES: Unremarkable. IMPRESSION: 1. Nonspecific small amount of low attenuation free fluid in the pelvis may be physiologic or secondary to a ruptured ovarian cyst. 2. Otherwise, unremarkable CT of the abdomen and pelvis. Signed by: Dr. Dionne Hall M.D. on 11/13/2018 11:57 AM
[2018-11-13] MEDS: INSULIN LISPRO 100 UNIT/1 ML 3ML VIAL SQ SCH ×6 (12:30→21:08)
[2018-11-13 13:39] LABS: CREATININE,URINE RANDOM 47.73 mg/dL (47-110)
--- NOTE | 2018-11-13 16:27 | Consultation ---
DATE OF CONSULTATION: 11/13/2018 REASON FOR CONSULTATION: [id number] kidney disease. REFERRING PHYSICIAN: ER physician. HISTORY OF PRESENT ILLNESS: This is a 18-year-old female with past medical history of diabetes mellitus, adrenal insufficiency, on fludrocortisone, diabetes mellitus, hypertension, and possible chronic kidney disease, but no serum creatinine available at the present time, was admitted with 3-day history of nausea, vomiting, and abdominal pain. Serum creatinine was 2.9 on admission and today was 1.7, so Nephrology consultation was obtained for further evaluation and management. At the time of examination, the patient said that she was feeling a whole lot better and denied anymore nausea, vomiting, or abdominal pain. She also denied any headache, blurring of vision, chest pain, cough, fever, chills, diarrhea, bleeding in the stools, urinary problems, skin rash, joint pains, or any focal weakness. PAST MEDICAL AND SURGICAL HISTORY: As above. PERSONAL AND SOCIAL HISTORY: No history of alcohol or tobacco. MEDICATIONS: See the medication sheet that was reviewed. PHYSICAL EXAMINATION: GENERAL: She appears in no acute distress. VITAL SIGNS: Blood pressure 86/45, respirations 18, heart rate 88, temperature 97.2. HEENT: Head is atraumatic, normocephalic. Pupils are reactive to light. Mouth; oral mucosa is moist. NECK: Supple. There is no significant lymphadenopathy or cardiomegaly. CHEST: Revealed fair air entry. HEART: S1 and S2. ABDOMEN: Soft. Bowel sounds are positive. EXTREMITIES: No edema. CITY ASSESSOR: She is awake and alert. Cranial nerves are intact. There are no gross motor deficits noted. LABORATORY DATA: White blood cell count 5.87, hemoglobin 11.6, hematocrit 34, platelets 211. Sodium 131, potassium 4.1, chloride 105, CO2 of 14, anion gap 16, BUN 32, creatinine 1.7, glucose 391, calcium 7.1. TSH 24.5. Urine specific gravity 1.020, pH 6, negative blood, negative protein. Chest x-ray was negative. IMPRESSION: 1. Acute on chronic kidney disease with improving serum creatinine at 1.7 mg/dL, probably from prerenal azotemia from decreased p.o. intake. She is nonoliguric. 2. Normal anion gap metabolic acidosis, probably from chloride load. 3. Mild hyponatremia, improved from 126 to 131 now. 4. Nausea, vomiting, and abdominal pain, improved. PLAN: Strict I's and O's. No nonsteroidal antiinflammatory drugs, FESTUS inhibitor, ARB. renal sodium and creatinine. Ultrasound of the kidneys. CBC and BMP in a.m. Change IV fluids to sterile water with 3 amps of soda bicarb at 100 cc an hour. Further recommendations to follow. Thank you for the consultation. Nabila Steven MD SA/HOLLEY /[id number]
--- NOTE | 2018-11-13 17:10 | NUR ---
Paged nephrology for clarification of orders for sodium bicarbonate IV. called Dr Steven's office as he is the telephone sterilizer physician for patient's cone former, upon getting the office there was another doctor covering for the patient's doctor. When the physician called back in response to request, notified the nurse that he is unaware of the patient and to assume the sodium bicarbonate IV is continuous if unspecified. Pharmacy notified.
[2018-11-13 17:42] LABS: FREE T4 (FREE THYROXINE) 0.8 ng/dL (0.9-1.8); THYROID STIMULATING HORMONE 24.128 uIU/mL (0.350-4.940)
--- NOTE | 2018-11-13 21:28 | Consultation ---
DATE OF CONSULTATION: 11/13/2018 Endocrine Consultation The patient of Dr. Gross. Thank you very much for this patient. 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 According the patient, she is a known case of type 1 diabetes mellitus for almost 10 years. 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 She has takes about 40 units of Lantus at bedtime and 10 to 15 of Humalog with each meal depending upon the blood sugars. She also takes Synthroid 0.088 mg once daily along with Florinef and hydrocortisone. She came to the hospital because of severe nausea and vomiting and on further evaluation in the emergency room, her blood sugars were elevated. Her BUN and creatinine was also elevated at 46 and 2.92. Anion gap was 19.6. Sodium was 126. The lab evaluation further showed her TSH was 24.35. PHYSICAL EXAMINATION: GENERAL: Today, the patient is alert, awake. She has extreme hyperpigmentation of the oral mucosa as well as of her hands. Suggest to of Dickenson's disease. VITAL SIGNS: Her heart rate is around 60. Blood pressure is 85/52. CHEST: Essentially unremarkable. CARDIOVASCULAR: Essentially unremarkable. NEUROLOGIC: She has evidence of diabetic sensory neuropathy in both lower extremities. IMPRESSION: 1. Multiple endocrinopathies. 2. Diabetes mellitus type 1. 3. Dickenson's disease. 4. Hypothyroidism. PLAN: At this time is to taper off the IV steroids and start her on the prednisone and Florinef back adjust the thyroid medications and adjust insulin dose. The patient preferably needs to be followed by an solid waste division supervisor as an outpatient because of the multiple other issues. She also has mild renal insufficiency, probably related to dehydration or prerenal azotemia. Thank you for referring this patient. I will be following this patient with you. MD QUINTON Curiel/MODL /[id number]
[2018-11-14] VITALS (7 sets, daily range): BP systolic 87–107; BP diastolic 51–73
[2018-11-14] MEDS ORDERED: HYDROCORTISONE SOD SUCCINATE 100 MG VIAL IV SCH (06:00)
[2018-11-14 06:07] LABS: BASOPHILS % 0.2 % (0.0-1.0); HEMATOCRIT 25.3 % (34.2-44.1); HEMOGLOBIN 8.4 g/dL (12.0-16.0); LYMPHOCYTES # (AUTO) 1.8 (1.0-3.2); LYMPHOCYTES % 33.6 % (18.0-39.1); MEAN CORPUSCULAR HGB CONC 33.2 g/dL (31-35); MEAN CORPUSCULAR VOLUME 90.4 fL (81-99); MONOCYTES # (AUTO) 0.2 (0.2-0.8); MONOCYTES % 4.5 % (4.4-11.3); NEUTROPHILS # (AUTO) 3.3 (2.1-6.9); NEUTROPHILS % 61.3 % (38.7-80.0); PLATELET COUNT 154 x10e3/uL (140-360); RED CELL DISTRIBUTION WIDTH 13.3 % (11.7-14.4)
[2018-11-14] MEDS: LEVOTHYROXINE SODIUM 100 MCG TAB PO SCH (06:10)
[2018-11-14 06:24] LABS: MAGNESIUM 2.1 MG/DL (1.3-2.1); PHOSPHORUS 2.9 MG/DL (2.3-4.7)
[2018-11-14 06:28] LABS: ANION GAP 10.5 mmol/L (8-16); BLOOD UREA NITROGEN 24 mg/dL (7-26); BUN/CREATININE RATIO 28 (6-25); CALCIUM 7.9 mg/dL (8.4-10.2); CARBON DIOXIDE 26 mmol/L (22-29); CHLORIDE 105 mmol/L (98-107); CREATININE, SERUM 0.87 mg/dL (0.57-1.11); EST GLOMERULAR FILTRATION RATE > 60 ML/MIN (60-); POTASSIUM 3.5 mmol/L (3.5-5.1); SODIUM 138 mmol/L (136-145)
[2018-11-14 06:36] LABS: GLUCOSE 59 mg/dL (74-118)
[2018-11-14 07:18] LABS: FOLATE 5.3 ng/mL (7.0-15.4)
[2018-11-14] MEDS: INSULIN LISPRO 100 UNIT/1 ML 3ML VIAL SQ SCH ×7 (07:30→20:48)
[2018-11-14] MEDS ORDERED: INSULIN GLARGINE 100 UNITS/ML VIAL SQ SCH ×2 (07:30)
[2018-11-14] MEDS: FLUDROCORTISONE ACETATE 0.1 MG TAB PO SCH ×2 (07:40→16:29)
[2018-11-14] MEDS: CEFTRIAXONE SOD 1 GM/NS 50 ML 50 ML IV SCH ×2 (10:04→21:33)
[2018-11-14] MEDS ORDERED: PREDNISONE 5 MG TAB PO SCH (17:00)
--- NOTE | 2018-11-14 18:45 | NUR ---
rounded with caustic cresylate shift superintendent nurse, patient aware of change and in no distress. call jamil within reach and bed in lowest position.
[2018-11-15] VITALS: BP 91/55
[2018-11-15 04:00] VITALS: BP 83/52
[2018-11-15] MEDS: LEVOTHYROXINE SODIUM 100 MCG TAB PO SCH (06:17)
[2018-11-15] MEDS: INSULIN LISPRO 100 UNIT/1 ML 3ML VIAL SQ SCH (07:30)
[2018-11-15] MEDS ORDERED: INSULIN GLARGINE 100 UNITS/ML VIAL SQ SCH (07:30)
--- NOTE | 2018-11-15 07:50 | NUR ---
BS is 67 this morning, OJ given at this time. Will recheck BS in 10-15mins
--- NOTE | 2018-11-15 08:12 | NUR ---
BS rechecked, 60 at this time. Pt exhibits no s/s of hypoglycemia. Pt stated she feels fine, asked for apple juice instead of OJ, said apple raises her BS better than OJ. 3 apple juices provided at this time, recheck BS in 15mins.
--- NOTE | 2018-11-15 08:30 | NUR ---
BS 108 at this time, after 3 apple juices consumed. Pt is stable, no s/s of distress noted.
[2018-11-15 08:45] VITALS: BP 82/50
[2018-11-15] MEDS ORDERED: ONDANSETRON HCL 4 MG ORAL DISINTEGRATING TAB PO PRN (09:00)
--- NOTE | 2018-11-15 09:46 | NUR ---
Notified Dr. Gross of BP reading of 86/50. No new orders given at this time, pt to be DC'd today.
[2018-11-15] MEDS ORDERED: KEFLEX500 MG (09:52)
[2018-11-15] MEDS ORDERED: LEVOTHYROXINE100 MCG PO (09:55)
[2018-11-15] MEDS ORDERED: PREDNISONE5 MG (10:00)
--- NOTE | 2018-11-15 12:07 | Diagnostic Imaging Report ---
EXAM: US RENAL RETROPERITONEAL COMP DATE: 11/15/2018 12:00 AM INDICATION:YRIS COMPARISON: CT abdomen/pelvis, 11/13/2018 FINDINGS: Grayscale and color flow Doppler ultrasound of the kidneys and urinary bladder was performed. Right kidney: 9.2 x 4.1 x 4.7 cm. Cortical thickness 1.4 cm. Cortical echogenicity normal. No hydronephrosis or contour deforming mass. Left kidney: 10.8 x 5.3 x 4.1 cm. Cortical thickness 1.3 cm. Cortical echogenicity normal. No hydronephrosis or contour deforming mass. Urinary bladder: Unremarkable appearance. Bilateral ureteral jets seen. Volume 38 cc. IMPRESSION: 1. No hydronephrosis or contour deforming renal mass. 2. Unremarkable appearance of the bladder. Signed by: Dr. John Paul Davies M.D. on 11/15/2018 12:03 PM
--- NOTE | 2018-11-15 16:31 | Discharge Summary ---
CONSULTANTS: 1. Dr. Sandeep Saeed. 2. Dr. George Rubin. 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 2. Diabetes type 1 status post dehydration, acute kidney injury, improving. 3. Nausea and vomiting, resolved. SUMMARY: The patient is a 18-year-old female, who came in with nausea and vomiting. The patient has diabetes type 1. She was not in DKA, but because of her dehydration, she was in crisis, hypotensive. The patient received multiple IV bolus and subsequent IV hydrocortisone for her Marky disease in early crisis. The patient was seen by Dr. George Rubin and Dr. Sandeep Saeed. Adjustment of her medication was made. Thyroid function test obtained. TSH was low at 24.3. The patient also had uncontrolled diabetes type 1 with glycohemoglobin A1c of 14. The patient has not been taking her insulin on a regular basis. The patient is stable, she is doing much better now. She is to go home today, resume her home medication with some adjustment. Insulin therapy to continue. Increase levothyroxine to 100 mcg daily. Continue the patient on hydrocortisone. The patient is stable, discharged home, follow up as an outpatient with her family physician. The patient will need outpatient referral to yarn washer to continue with her management. The patient is otherwise stable, discharged home today. MD TAMERA Burger/MODL /[id number]
== END 2018-11-15 10:53 | disposition home or self-care (01) | DRG 644 ==
LOC: ER 20:34 → ERHOLD 21:59 → IMCU 11-13 00:31 → OBSVTOIN 11-13 09:11 → MED/SURG 11-13 10:11
PROVIDERS: ADMIT Internal Medicine; ATTEND Internal Medicine
DX: E27.1 Primary adrenocortical insufficiency (principal); N17.9 Acute kidney failure, unspecified; E10.9 Type 1 diabetes mellitus without complications; Z79.4 Long term (current) use of insulin; E86.0 Dehydration
CPT/HCPCS: 36415; 71045; 74176; 76770; 80048; 80053; 81001; 82024; 82570; 82607; 82746; 82948; 83036; 83605; 83735; 84100; 84300; 84439; 84443; 84702; 85025; 96372; 99284; G0378; J0696; J1720; J1815; J2405; J7030; J7512; J7799

== ENCOUNTER 2018-11-25 15:01 | Emergency (ER) | payer SELFPAY ==
[~2018-11-25] VITALS: Ht 162.6 cm; Wt 60.8 kg
[~2018-11-25 15:01] MED LIST changes: +HYDROCORTISONE10 MG PO; +KEFLEX500 MG; +LANTUS 3ML100 UNITS/ SC; +LEVOTHYROXINE100 MCG PO; +NOVOLOG100 UNIT/1 SC; +PREDNISONE5 MG
--- OUTSIDE RECORDS SUMMARY | 2018-11-25 15:04 | XMS REPORT | Clinical Summary ---
Author Author [facility] Organization [facility] Address Unknown Phone Unavailable Care Team Providers Care Solid State Tester Name Role Phone Gregoria Rodrigez MD PCP Allergies No Known Allergies Medications End Date Status Medication Sig Dispensed Refills Start Date Active fludrocortisone Take 1 tablet 90 tablet [...] every diabetes mellitus with evening. microalbuminuria Active hydrocortisone (CORTEF) 5 Take 3 450 tablet 1 mg tabletIndications: tablets by 9 Primary adrenal mouth in the insufficiency morning and 2 tablets in early afternoon. Take triple the dose when ill Active insulin aspart U-100 Inject 15 39 mL 0 (NOVOLOG FLEXPEN U-100 Units under 9 INSULIN) 100 unit/mL (3 the skin 3 mL) penIndications: Type times daily 1 diabetes mellitus with with meals. microalbuminuria 08/18/2018 Discontinued lisinopril (PRINIVIL) 5 Take 1 tablet 90 tablet 1 mg tabletIndications: by mouth 8 Type 1 diabetes mellitus daily. with microalbuminuria 11/22/2018 Discontinued hydrocortisone (CORTEF) 5 Take 3 450 tablet 1 mg tabletIndications: tablets by 8 Primary adrenal mouth in the insufficiency morning and 2 tablets in early afternoon. Take triple the dose when ill 08/18/2018 Discontinued levothyroxine (SYNTHROID) Take 1 tablet [...] with Mon,Thurs) to microalbuminuria test blood sugar. 08/17/2018 Discontinued lancets 28 Use 2 times 100 Each 1 gaugeIndications: Type 1 weekly as 8 diabetes mellitus with directed. microalbuminuria 08/18/2018 Discontinued insulin detemir U-100 Inject 42 39 mL 1 (LEVEMIR FLEXTOUCH) 100 Units under 8 unit/mL (3 mL) the skin PenIndications: Type 1 every diabetes mellitus with evening. microalbuminuria 11/22/2018 Discontinued insulin aspart U-100 Inject 15 39 mL 0 (NOVOLOG FLEXPEN U-100 Units under 9 INSULIN) 100 unit/mL the skin 3 penIndications: Type 1 times daily diabetes mellitus with with meals. microalbuminuria Active Problems No known active problems Encounters Care Team Description Date Type Specialty Jorje Figueroa RN 11/23/2018 Nurse Triage Gregoria Rodrigez MD Primary adrenal insufficiency; Type 1 diabetes mellitus with microalbuminuria 11/22/2018 Refill Family Practice Shauna Gao, SOMMER Type 1 diabetes mellitus without retinopathy (Primary Dx); Glaucoma suspect of left eye; Blurred vision, left eye; Refractive error 11/02/2018 Office Visit Ophthalmology 11/02/2018 Gregoria Hawkins MD Type 1 diabetes mellitus with microalbuminuria 09/07/2018 Refill Ophthalmology Gregoria Rodrigez MD Type 1 diabetes mellitus with microalbuminuria 08/18/2018 Lab Appointment Lab Gregoria Rodrigez MD Type 1 diabetes mellitus with microalbuminuria 08/18/2018 Ancillary Ophthalmology Procedure 08/18/2018 Travel Gregoria Rodrigez MD Type 1 diabetes mellitus with microalbuminuria; [...] care 05/13/2018 Office Visit Family Practice after 11/24/2017 Immunizations Name Dates Previously Given Next Due [...] Description Date Type Specialty Gregoria Rodrigez MD [address] [place] [address] [id number] [place], [place] [id number] General check up 11/30/2018 Office Visit Family Practice 12/30/2018 Office Visit Ophthalmology Shauna Gao, OD [address] [place] [address] 01/31/2019 Office Visit Ophthalmology Health Maintenance Due Date Last Done Comments IMM Influenza Seasonal 04/26/2019 05/13/2018 Oct to September (>/=19 yrs) DM Foot Exam (Yearly) 05/13/2019 05/13/2018 DM HGBA1C (Yearly) 05/13/2019 05/13/2018 DM Retinal Exam (Yearly) 11/03/2019 11/02/2018, 08/18/2018 Procedures Comments Procedure Name Priority Date/Time Associated Diagnosis OPHTHALMOLOGY RETINAL Routine 08/18/2018 Type 1 diabetes mellitus SCAN 11:04 AM HALL SUPERVISOR with microalbuminuria LIPID PROFILE Routine 08/18/2018 Type 1 diabetes mellitus 9:46 AM HALL SUPERVISOR with microalbuminuria MICROALBUM, URINE Routine 05/13/2018 Type [...] mellitus 3:03 PM CDT with microalbuminuria after 11/24/2017 Results * OPHTHALMOLOGY RETINAL SCAN (08/18/2018 11:04 AM HALL SUPERVISOR) RETINAL NORMAL IRIS SCAN-FINAL RESULT Right Diabetic None IRIS Retinopathy Right Macular None IRIS Edema Right Other None IRIS Suspected Conditions Right Image Gradeable Image IRIS Quality Left Diabetic None IRIS Retinopathy Left Macular None IRIS Edema Left Other Suspected Glaucoma IRIS Suspected Conditions Left Image Gradeable Image IRIS Quality Narrative Performed At Retinal Study Result for ELIAN SORENSON IRIS ELIAN SORENSONjesus 18 y/o, F (: 2000, ) presented to [facility] on 08-18-2018 for a retinal imaging study of the left and right eyes. Based on the findings of the study, the following is recommended for ELIAN SORENSON Other Suspected Condition Found: Refer to [facility], next available appointment.For Follow-up at [facility]: The patient can be scheduled into any [facility] that has an open booking by calling the appointment center. Interpreting Provider's Comments:No comments provided Right Eye Findings: Normal Result.Negative for Diabetic Retinopathy. Left Eye Findings: Negative for Diabetic Retinopathy. Other: Suspected Glaucoma This result was electronically signed by Nicola Daugherty MD, , Taxonomy: [id number] on 08-18-2018 04:04:29 [facility] time. NOTE:Any pathology noted on this diabetic retinal evaluation should be confirmed by an appropriate ophthalmic examination. Performing Organization Address City/State/[facility] Phone Number IRIS * LIPID PROFILE (08/18/2018 9:46 AM HALL SUPERVISOR) Cholesterol 196 mg/dL BT MAIN-STATION Comment: 1 REFERENCE RANGE: Desirable: <200 mg/dL Borderline: 200-240 mg/dL High Risk: >240 mg/dL Triglyceride 103 <150 mg/dL BT MAIN-STATION Comment: 1 REFERENCE RANGE: Normal: <150 mg/dL Borderline High: 150-199 mg/dL High: 200-499 mg/dL Very High: >rx=121 mg/dL HDL 50 mg/dL BT MAIN-STATION Comment: 1 Increased CHD risk: <40 mg/dL Decreased CHD risk: >60 mg/dL LDL 125 mg/dL BT MAIN-STATION Comment: 1 REFERENCE RANGE: Optimal: <100 mg/dL Near Optimal: 100-129 mg/dL Borderline High: 130-159 mg/dL High: 160-189 mg/dL Very High: >am=973 mg/dL Specimen Blood Performing Organization Address [facility] Phone Number [facility] BT MAIN-STATION 1 * MICROALBUM, URINE (05/13/2018 [...] a week is recommended. Performing Organization Address [facility] Phone Number [facility] BT MAIN-STATION 1 BT MAIN-STATION 4 * VIT D, 25-HYDROXY (05/13/2018 3:23 PM CDT) Vit D, 14.9 (L) 30 - 100 ng/mL BT DIAGNOSTIC 25-Hydroxy Comment: IMMUNOLOGY Vitamin D deficiency has been defined by the [place] of Medicine and Endocrine Society guideline as a level of serum 25-OH Vitamin D less than 20 ng/mL. The Endocrine Society further defines Vitamin D insufficiency as a level between 21 and 29 ng/mL and sufficiency as a level between 30 and 100 ng/mL. Performing Organization Address [facility] Phone Number [employer] BT DIAGNOSTIC IMMUNOLOGY * HIV-1/HIV-2 ROUTINE SCREENING (05/13/2018 3:23 PM CDT) HIV-1/HIV-2 Negative NEG BT MAIN-STATION 3 Performing Organization Address City/[facility] Phone Number [employer] BT MAIN-STATION 3 * ACTH, PLASMA (05/13/2018 3:23 PM CDT) ACTH, Plasma 894.2 LABORATORY Reference range: 7.2 to 63.3 CORPORATION OF Unit: pg/mL TERRELL (note) ACTH reference interval for samples collected between 7 and 10 AM. (H) Specimen Blood Performing Organization Address [facility] Phone Number [employer] LABORATORY CORPORATION OF [address] [place] [address] TERRELL 145 * HEMOGLOBIN A1C (05/13/2018 3:23 PM CDT) Hemoglobin A1c 14.7 (H) 4.3 - 6.1 % BT DIAGNOSTIC IMMUNOLOGY Est Average 375.2 mg/dL BT DIAGNOSTIC Gluc IMMUNOLOGY Specimen Blood Performing Organization Address [facility] Phone Number [employer] BT DIAGNOSTIC IMMUNOLOGY * COMPREHENSIVE METABOLIC PANEL(DBIL NOT [...] MAIN-STATION 1 Specimen Blood Performing Organization Address [facility] Phone Number [facility] BT MAIN-STATION 1 * TSH (05/13/2018 3:23 PM CDT) TSH 31.02 (H) 0.57 - 3.74 uIU/mL BT MAIN-STATION 1 Specimen Blood Performing Organization Address [facility] Phone Number [facility] MAIN-STATION 1 * FREE T4 (05/13/2018 3:23 PM CDT) Free T4 0.57 (L) 0.61 - 1.18 ng/dl BT MAIN-STATION Comment: 1 females: 1st Trimester-0.52-1.10 ng/dL 2nd Trimester=0.45-0.99 ng/dL 3rd Trimester=0.48-0.95 ng/dL Specimen Blood Performing Organization Address [facility] Phone Number [facility] MAIN-STATION 1 * HEPATITIS PANEL (05/13/2018 3:23 PM CDT) HCV IgG Negative NEG BT MAIN-STATION 3 HBsAg Negative NEG BT MAIN-STATION 3 HAV, IgM Negative NEG BT MAIN-STATION 3 HBcAb, IgM Negative NEG BT MAIN-STATION 3 Specimen Blood Performing Organization Address [facility] Phone Number [facility] BT MAIN-STATION 3 * CBC/DIFF (05/13/2018 3:23 [...] Performing Organization Address City/State/Zipcode Phone Number [facility] MAIN-STATION 2 * DIABETIC FOOT EXAM (05/13/2018 3:03 PM CDT) Narrative Performed At Gregoria Rodrigez MD 05/13/20183:52 PM Diabetic Foot Exam was performed at 05/13/2018 3:52 PM.Right foot sensation is normal, right foot pulses are normal, right foot appearance is normal.Left foot sensation is normal,left foot pulses are normal, left foot appearance is normal. after 11/24/2017 Insurance Type Payer Benefit Subscriber ID Effective Phone Address Plan / Dates Group [place] [employer] [place] x[place] 2018- [phone] [address] [employer] [address]ILY 2019 [id number] [place], [place] [address] TITLE V PROGRAM TITLE V - xxxxxxxxx 2018- [phone] [address] [facility] [place] [address] [employer] PLAN H[employer] PLAN xxxxx 2018-9 [address] [place] [address]
[2018-11-25 16:11] LABS: BASOPHILS % 0.3 % (0.0-1.0); EOSINOPHILS # (AUTO) 0.3 (0.0-0.4); EOSINOPHILS % 2.5 % (0.0-6.0); HEMATOCRIT 32.2 % (34.2-44.1); HEMOGLOBIN 10.2 g/dL (12.0-16.0); MEAN CORPUSCULAR HEMOGLOBIN 31.2 pg (28-32); MEAN CORPUSCULAR HGB CONC 31.7 g/dL (31-35); MEAN CORPUSCULAR VOLUME 98.5 fL (81-99); MONOCYTES # (AUTO) 0.5 (0.2-0.8); MONOCYTES % 4.2 % (4.4-11.3); NEUTROPHILS # (AUTO) 6.9 (2.1-6.9); NEUTROPHILS % 64.4 % (38.7-80.0); PLATELET COUNT 311 x10e3/uL (140-360); RED BLOOD COUNT 3.27 x10e6/uL (3.6-5.1)
--- NOTE | 2018-11-25 16:15 | Diagnostic Imaging Report ---
EXAMINATION: CHEST 2 VIEWS INDICATION: Rib pain. COMPARISON: Chest radiograph 11/12/2018. FINDINGS: TUBES and LINES: None. LUNGS: Lungs are not well inflated. There is no evidence of pneumonia or pulmonary edema. PLEURA: No pleural effusion or pneumothorax. HEART AND MEDIASTINUM: The cardiomediastinal silhouette is unremarkable. BONES AND SOFT TISSUES: No acute osseous abnormality. UPPER ABDOMEN: No free air under the diaphragm. IMPRESSION: No acute radiographic abnormality. Signed by: Dr. Ashley Aguilar MD on 11/25/2018 4:12 PM
[2018-11-25 16:37] LABS: ALANINE AMINOTRANSFERASE 120 IU/L (0-55); ALBUMIN 3.1 g/dL (3.5-5.0); ALKALINE PHOSPHATASE 135 IU/L (40-150); AMYLASE 50 U/L (25-125); ANION GAP 11.8 mmol/L (8-16); BLOOD UREA NITROGEN 12 mg/dL (7-26); BUN/CREATININE RATIO 14 (6-25); CALCIUM 9.2 mg/dL (8.4-10.2); CARBON DIOXIDE 26 mmol/L (22-29); CHLORIDE 101 mmol/L (98-107); CREATININE, SERUM 0.85 mg/dL (0.57-1.11); EST GLOMERULAR FILTRATION RATE > 60 ML/MIN (60-); GLUCOSE 319 mg/dL (74-118); LIPASE 13 U/L (8-78); MAGNESIUM 1.6 MG/DL (1.3-2.1); POTASSIUM 3.8 mmol/L (3.5-5.1); SODIUM 135 mmol/L (136-145)
[2018-11-25 16:52] LABS: BILIRUBIN,URINE NEGATIVE (NEGATIVE); CLARITY,URINE SL CLOUDY (CLEAR); COLOR,URINE YELLOW (YELLOW); KETONES,URINE NEGATIVE (NEGATIVE); LEUKOCYTE ESTERASE ,URINE NEGATIVE (NEGATIVE); NITRITE,URINE NEGATIVE (NEGATIVE); PROTEIN,URINE DIPSTICK NEGATIVE (NEGATIVE); URINE UROBILINOGEN 0.2 mg/dL (0.2 - 1)
[2018-11-25 16:57] LABS: THYROID STIMULATING HORMONE 17.142 uIU/mL (0.350-4.940)
[2018-11-25 17:03] LABS: EPITHELIAL CELLS,URINE MANY /LPF; WBC,URINE (MAN) 0-5 /HPF (0-5)
[2018-11-25 17:04] LABS: BACTERIA,URINE MODERATE /HPF
[2018-11-25 17:05] LABS: PREGNANCY TEST, URINE NEGATIVE (NEGATIVE)
[2018-11-25 19:36] VITALS: BP 109/73
== END 2018-11-25 19:35 | disposition home or self-care (01) ==
LOC: ER 15:01
DX: R10.84 Generalized abdominal pain (principal); E10.65 Type 1 diabetes mellitus with hyperglycemia; Z79.4 Long term (current) use of insulin; R60.0 Localized edema; E27.1 Primary adrenocortical insufficiency; E07.9 Disorder of thyroid, unspecified
CPT/HCPCS: 36415; 71046; 80053; 81001; 81025; 82150; 83690; 83735; 83880; 84443; 85025; 99284